=== PATIENT | female | born 1955 | race Caucasian/White ===

== ENCOUNTER 2022-03-07 22:36 | Emergency (ER) | payer OTHER ==
[2022-03-07] MEDS ORDERED: SODIUM CHLORIDE 2,654 ML IV ONE (23:10)
[2022-03-07 23:21] VITALS: TEMP 99.1; BMI 34.5
[2022-03-07] MEDS ORDERED: SODIUM CHLORIDE 0.9% 500 ML INFUS.BAG IV ONE (23:34)
[2022-03-07 23:36] LABS: VENOUS BASE EXCESS -8.3 mmol/L (-2-2); VENOUS O2 SATURATION 47.9 % (70-80); VENOUS PCO2 27.8 mmHg (38-52); VENOUS PH 7.383 (7.310-7.410)
[2022-03-07 23:38] LABS: BASO % 0.2 % (0-2.0); HEMATOCRIT 11.6 % (32.4-45.2); LYMPH % 15.2 % (8-40); MCH 39.7 pg (25.7-33.7); MCHC 33.7 g/dl (32.0-36.0); MEAN CELL VOLUME 117.6 fl (80-96); MEAN PLT VOLUME 9.3 fl (7.5-11.1); NEUT % 75.6 % (42.8-82.8); PLATELET COUNT 102 10^3/uL (134-434); RBC 0.98 M/mm3 (3.60-5.2); RDW 16.4 % (11.6-15.6); WHITE BLOOD COUNT 14.4 K/mm3 (4.0-10.0)
[2022-03-07 23:42] LABS: HEMOGLOBIN 3.9 GM/dL (10.7-15.3)
[2022-03-07 23:45] LABS: INR 2.46 (0.83-1.09); PROTHROMBIN TIME (PATIENT) 28.5 SEC (9.7-13.0)
[2022-03-07 23:48] LABS: ACTIVATED PTT 31.2 SECONDS (25.2-36.5)
[2022-03-07 23:58] LABS: CHLORIDE 94 mmol/L (98-107); SODIUM 130 mmol/L (136-145)
[2022-03-08 00:01] LABS: ALBUMIN 2.8 g/dl (3.4-5.0); ANION GAP 21 MMOL/L (8-16); CALCIUM 8.7 mg/dL (8.5-10.1); CO2 15 mmol/L (21-32); GLUCOSE,RANDOM 130 mg/dL (74-106)
[2022-03-08 00:04] LABS: CREATININE 1.8 mg/dL (0.55-1.3); SGOT/AST 170 U/L (15-37); SGPT/ALT 49 U/L (13-61)
[2022-03-08 00:05] LABS: ANISOCYTOSIS 3+; MACROCYTOSIS 3+
[2022-03-08 00:06] LABS: BILIRUBIN,TOTAL 9.2 mg/dL (0.2-1); TOT PROT 6.2 g/dl (6.4-8.2)
[2022-03-08 00:07] LABS: ALK PHOS 65 U/L (45-117)
[2022-03-08 00:28] LABS: LACTIC ACID 8.4 mmol/L (0.4-2.0)
[2022-03-08 00:32] LABS: EPI CELLS 2 /uL (0-25.1); HYALINE CASTS 2 /uL (0-3.1); PH,URINE 5.5 (5.0-8.0); URINE APPEARANCE CLEAR; URINE BILIRUBIN 1+ (NEGATIVE); URINE COLOR ORANGE; URINE GLUCOSE (UA) NEGATIVE (NEGATIVE); URINE KETONE TRACE (NEGATIVE); URINE LEUK ESTERASE TRACE (NEGATIVE); URINE NITRITE POSITIVE (NEGATIVE); URINE PROTEIN NEGATIVE (NEGATIVE); URINE RBC 36 /uL (0-23.9); URINE WBC 3 /uL (0-25.8)
[2022-03-08 01:48] VITALS: RESP 18
[2022-03-08 03:17] VITALS: BP 89/48; PULSE 100
[2022-03-09 09:20] LABS: LIPASE 432 U/L (73-393)
== END 2022-03-08 05:20 | disposition short-term general hospital (02) ==
LOC: JER 22:36
DX: R17 Unspecified jaundice (principal); D50.0 Iron deficiency anemia secondary to blood loss (chronic)
CPT/HCPCS: 36415; 36430; 70450-TC; 71045-TC-FY; 71250-TC; 74176-TC; 80053; 81003; 82140; 82550; 82553; 82803; 83605; 83690; 84484; 85025; 85610; 85730; 86850; 86900; 86901; 86922; 87040; 87086; 93005; 93010; 99285-25; C9803-CS; P9058; U0003; U0005

== ENCOUNTER 2022-06-18 08:50 | Inpatient (IN) | payer OTHER ==
[2022-06-18 09:06] VITALS: BMI 26.2
[2022-06-18] MEDS ORDERED: VANCOMYCIN 1 GM in D5W (PRE-DOCKED) 1,000 MG/250 ML IVPB ONE (09:43)
[2022-06-18] MEDS ORDERED: PIPERACILLIN/TAZOB 3.375 GM 3.375 GM in DEXTROSE 5%-WATER - 50 ML IVPB ONE (09:43)
[2022-06-18] MEDS ORDERED: PIPERACILLIN/TAZOB 3.375 GM 3.375 GM/50 ML BAG IVPB ONE ×2 (10:07→20:39)
[2022-06-18] MEDS ORDERED: VANCOMYCIN/WATER FOR INJ (PEG) 1,000 MG/200 ML BAG IVPB ONE (10:07)
[2022-06-18 11:02] LABS: BASO % 0.5 % (0-2.0); EOS % 1.2 % (0-4.5); HEMATOCRIT 29.7 % (32.4-45.2); HEMOGLOBIN 10.4 GM/dL (10.7-15.3); LYMPH % 22.9 % (8-40); MCH 38.9 pg (25.7-33.7); MEAN CELL VOLUME 111.3 fl (80-96); MEAN PLT VOLUME 8.5 fl (7.5-11.1); MONO % 12.3 % (3.8-10.2); NEUT % 63.1 % (42.8-82.8); PLATELET COUNT 131 10^3/uL (134-434); RBC 2.67 M/mm3 (3.60-5.2); RDW 14.1 % (11.6-15.6); WHITE BLOOD COUNT 8.5 K/mm3 (4.0-10.0)
[2022-06-18 11:17] LABS: CHLORIDE 102 mmol/L (98-107); SODIUM 132 mmol/L (136-145)
[2022-06-18 11:18] LABS: INR 2.02 (0.83-1.09); PROTHROMBIN TIME (PATIENT) 23.4 SEC (9.7-13.0)
[2022-06-18 11:19] LABS: ALBUMIN 1.8 g/dl (3.4-5.0); BLOOD UREA NITROGEN 13.2 mg/dL (7-18); CALCIUM 8.5 mg/dL (8.5-10.1); CO2 24 mmol/L (21-32); GLUCOSE,RANDOM 84 mg/dL (74-106)
[2022-06-18 11:21] LABS: ACTIVATED PTT 34.7 SECONDS (25.2-36.5)
[2022-06-18 11:23] LABS: CREATININE 0.7 mg/dL (0.55-1.3); SGOT/AST 207 U/L (15-37)
[2022-06-18 11:25] LABS: ALK PHOS 68 U/L (45-117); BILIRUBIN,TOTAL 4.3 mg/dL (0.2-1); TOT PROT 7.2 g/dl (6.4-8.2)
[2022-06-18 11:32] LABS: ANION GAP 6 MMOL/L (8-16); SGPT/ALT 50 U/L (13-61)
[2022-06-18 12:51] LABS: ANISOCYTOSIS 1+; MACROCYTOSIS 1+; OVALOCYTE 1+
[2022-06-18] MEDS ORDERED: SODIUM ZIRCONIUM CYCLOSILICATE (LOKELMA) 5 GM PACKET ONE (20:39)
[2022-06-18] MEDS: MIDODRINE HCL 2.5 MG TABLET PO SCH (20:52)
[2022-06-18] MEDS: PIPERACILLIN/TAZOB 3.375 GM 3.375 GM in DEXTROSE 5%-WATER - 50 ML IVPB SCH (20:52)
[2022-06-18] MEDS: SODIUM ZIRCONIUM CYCLOSILICATE (LOKELMA) 5 GM PACKET PO SCH (20:52)
[2022-06-18 21:11] LABS: CALCIUM 8.2 mg/dL (8.5-10.1)
[2022-06-18 21:12] LABS: BLOOD UREA NITROGEN 13.6 mg/dL (7-18)
[2022-06-18 21:14] LABS: CREATININE 0.7 mg/dL (0.55-1.3)
[2022-06-19] MEDS: DEXTROSE 5%-0.45% SALINE 1,000 ML IV SCH ×2 (01:41→17:19)
[2022-06-19] MEDS: METOPROLOL TARTRATE 25 MG TABLET (FP) PO SCH ×4 (01:41→21:33)
[2022-06-19] MEDS: PIPERACILLIN/TAZOB 3.375 GM 3.375 GM in DEXTROSE 5%-WATER - 50 ML IVPB SCH ×4 (01:46→17:19)
[2022-06-19 09:56] LABS: BASO % 0.6 % (0-2.0); EOS % 2.9 % (0-4.5); HEMATOCRIT 26.8 % (32.4-45.2); HEMOGLOBIN 9.4 GM/dL (10.7-15.3); LYMPH % 28.7 % (8-40); MCH 38.3 pg (25.7-33.7); MCHC 34.9 g/dl (32.0-36.0); MEAN CELL VOLUME 109.5 fl (80-96); MEAN PLT VOLUME 7.7 fl (7.5-11.1); MONO % 12.1 % (3.8-10.2); NEUT % 55.7 % (42.8-82.8); PLATELET COUNT 120 10^3/uL (134-434); RBC 2.45 M/mm3 (3.60-5.2); WHITE BLOOD COUNT 7.6 K/mm3 (4.0-10.0)
[2022-06-19] MEDS: SODIUM ZIRCONIUM CYCLOSILICATE (LOKELMA) 5 GM PACKET PO SCH (10:01)
[2022-06-19] MEDS: MIDODRINE HCL 2.5 MG TABLET PO SCH ×2 (10:01→17:19)
[2022-06-19 10:17] LABS: CALCIUM 8.5 mg/dL (8.5-10.1); MAGNESIUM 1.7 mg/dL (1.8-2.4)
[2022-06-19 10:18] LABS: ALBUMIN 1.8 g/dl (3.4-5.0); BLOOD UREA NITROGEN 13.8 mg/dL (7-18)
[2022-06-19 10:22] LABS: CREATININE 0.7 mg/dL (0.55-1.3)
[2022-06-19 10:23] LABS: TOT PROT 6.4 g/dl (6.4-8.2)
[2022-06-19] MEDS ORDERED: PANTOPRAZOLE 40 MG TABLET PO SCH (12:00)
[2022-06-19] MEDS: LACTULOSE 20 GM/30 ML UDC (FOR ORAL USE ONLY) PO SCH ×2 (12:43→21:32)
[2022-06-19] MEDS: VANCOMYCIN/WATER FOR INJ (PEG) 1,000 MG/200 ML BAG IVPB SCH (14:49)
[2022-06-19] MEDS ORDERED: MAGNESIUM SULF 50% (8.12 MEQ/2 ML-1 GM VIAL) IVPB ONE (15:28)
[2022-06-19] MEDS: HEPARIN NA (PORCINE) 5,000 UNITS/ML 1ML VIAL SQ SCH (21:33)
[2022-06-19] MEDS: FUROSEMIDE 40 MG TABLET (FP) PO SCH (21:36)
[2022-06-19] MEDS: SODIUM CHLORIDE 1 GM TABLET PO SCH (21:37)
[2022-06-19] MEDS ORDERED: RIFAXIMIN 550 MG TABLET PO SCH (22:00)
[2022-06-20] MEDS: PIPERACILLIN/TAZOB 3.375 GM 3.375 GM in DEXTROSE 5%-WATER - 50 ML IVPB SCH ×5 (01:09→17:10)
[2022-06-20] MEDS: VANCOMYCIN/WATER FOR INJ (PEG) 1,000 MG/200 ML BAG IVPB SCH ×2 (02:21→15:31)
[2022-06-20] MEDS: METOPROLOL TARTRATE 25 MG TABLET (FP) PO SCH ×3 (06:05→21:37)
[2022-06-20] MEDS: SODIUM CHLORIDE 1 GM TABLET PO SCH ×2 (09:46→21:37)
[2022-06-20] MEDS: HEPARIN NA (PORCINE) 5,000 UNITS/ML 1ML VIAL SQ SCH ×2 (09:46→21:37)
[2022-06-20] MEDS: LEVOTHYROXINE NA 100 MCG TABLET (FP) PO SCH (09:46)
[2022-06-20] MEDS: FAMOTIDINE 20 MG TABLET PO SCH (09:46)
[2022-06-20] MEDS: MIDODRINE HCL 2.5 MG TABLET PO SCH ×2 (09:46→17:10)
[2022-06-20] MEDS: FUROSEMIDE 40 MG TABLET (FP) PO SCH ×2 (09:46→21:37)
[2022-06-20] MEDS: PYRIDOXINE HCL (B-6) 50 MG TABLET (FP) PO SCH (09:46)
[2022-06-20] MEDS: LACTULOSE 20 GM/30 ML UDC (FOR ORAL USE ONLY) PO SCH ×2 (09:47→21:37)
[2022-06-20] MEDS: SPIRONOLACTONE 25 MG TABLET PO SCH (09:47)
[2022-06-20 11:36] LABS: BASO % 1.1 % (0-2.0); EOS % 4.4 % (0-4.5); HEMATOCRIT 25.4 % (32.4-45.2); HEMOGLOBIN 8.9 GM/dL (10.7-15.3); LYMPH % 30.3 % (8-40); MCH 38.3 pg (25.7-33.7); MEAN CELL VOLUME 109.5 fl (80-96); MEAN PLT VOLUME 7.4 fl (7.5-11.1); MONO % 9.5 % (3.8-10.2); NEUT % 54.7 % (42.8-82.8); PLATELET COUNT 109 10^3/uL (134-434); RBC 2.32 M/mm3 (3.60-5.2); RDW 13.8 % (11.6-15.6); RETICULOCYTES 2.63 % (0.5-1.5); WHITE BLOOD COUNT 5.8 K/mm3 (4.0-10.0)
[2022-06-20 12:18] LABS: CALCIUM 8.4 mg/dL (8.5-10.1)
[2022-06-20 12:19] LABS: ALBUMIN 1.7 g/dl (3.4-5.0); ALBUMIN 1.8 g/dl (3.4-5.0); BLOOD UREA NITROGEN 10.2 mg/dL (7-18)
[2022-06-20 12:21] LABS: BILIRUBIN,DIRECT 1.7 mg/dL (0.0-0.2)
[2022-06-20 12:22] LABS: CREATININE 0.8 mg/dL (0.55-1.3)
[2022-06-20 12:24] LABS: BILIRUBIN,TOTAL 3.2 mg/dL (0.2-1)
[2022-06-20] MEDS ORDERED: POTASSIUM CHLORIDE TABS 20 MEQ TABLET.ER (FP) PO ONE (13:30)
[2022-06-20] MEDS: DEXTROSE 5%-0.45% SALINE 1,000 ML IV SCH ×2 (15:31→17:09)
[2022-06-21] MEDS: PIPERACILLIN/TAZOB 3.375 GM 3.375 GM in DEXTROSE 5%-WATER - 50 ML IVPB SCH ×3 (01:56→17:17)
[2022-06-21] MEDS: VANCOMYCIN/WATER FOR INJ (PEG) 1,000 MG/200 ML BAG IVPB SCH ×2 (02:23→14:44)
[2022-06-21] MEDS: METOPROLOL TARTRATE 25 MG TABLET (FP) PO SCH ×3 (06:14→22:31)
[2022-06-21] MEDS: LEVOTHYROXINE NA 100 MCG TABLET (FP) PO SCH (06:14)
[2022-06-21 09:22] LABS: BASO % 0.7 % (0-2.0); HEMATOCRIT 25.6 % (32.4-45.2); HEMOGLOBIN 8.9 GM/dL (10.7-15.3); LYMPH % 25.2 % (8-40); MCH 38.4 pg (25.7-33.7); MCHC 34.8 g/dl (32.0-36.0); MEAN CELL VOLUME 110.3 fl (80-96); MONO % 11.4 % (3.8-10.2); NEUT % 60.7 % (42.8-82.8); PLATELET COUNT 112 10^3/uL (134-434); RBC 2.32 M/mm3 (3.60-5.2); RDW 14.1 % (11.6-15.6); WHITE BLOOD COUNT 8.4 K/mm3 (4.0-10.0)
[2022-06-21 09:34] LABS: ALBUMIN 1.8 g/dl (3.4-5.0); BLOOD UREA NITROGEN 9.8 mg/dL (7-18); CALCIUM 8.3 mg/dL (8.5-10.1)
[2022-06-21] MEDS: SPIRONOLACTONE 25 MG TABLET PO SCH (09:34)
[2022-06-21] MEDS: HEPARIN NA (PORCINE) 5,000 UNITS/ML 1ML VIAL SQ SCH ×2 (09:35→22:31)
[2022-06-21] MEDS: PYRIDOXINE HCL (B-6) 50 MG TABLET (FP) PO SCH (09:35)
[2022-06-21] MEDS: LACTULOSE 20 GM/30 ML UDC (FOR ORAL USE ONLY) PO SCH ×2 (09:35→22:30)
[2022-06-21 09:37] LABS: BILIRUBIN,DIRECT 1.6 mg/dL (0.0-0.2); CREATININE 0.9 mg/dL (0.55-1.3)
[2022-06-21] MEDS: FUROSEMIDE 40 MG TABLET (FP) PO SCH ×2 (09:37→22:32)
[2022-06-21] MEDS: FAMOTIDINE 20 MG TABLET PO SCH (09:37)
[2022-06-21] MEDS: SODIUM CHLORIDE 1 GM TABLET PO SCH ×2 (09:38→22:31)
[2022-06-21] MEDS: MIDODRINE HCL 2.5 MG TABLET PO SCH ×2 (09:38→17:17)
[2022-06-21 09:39] LABS: BILIRUBIN,TOTAL 3.3 mg/dL (0.2-1)
[2022-06-21] MEDS ORDERED: POTASSIUM CHLORIDE TABS 20 MEQ TABLET.ER (FP) PO ONE (12:02)
[2022-06-21] MEDS: NYSTATIN POWDER 100,000 UNITS/GM - 15 GM TOPICAL POWDER TP SCH ×2 (13:16→22:33)
[2022-06-21] MEDS: POTASSIUM CHLORIDE TABS 20 MEQ TABLET.ER (FP) PO SCH (13:17)
[2022-06-21] MEDS: COLLAGENASE CLOSTRIDIUM HIST. 30 GRAMS TUBE TP SCH (22:30)
[2022-06-22] MEDS: PIPERACILLIN/TAZOB 3.375 GM 3.375 GM in DEXTROSE 5%-WATER - 50 ML IVPB SCH ×3 (02:28→18:02)
[2022-06-22] MEDS: VANCOMYCIN/WATER FOR INJ (PEG) 1,000 MG/200 ML BAG IVPB SCH ×2 (03:39→17:07)
[2022-06-22] MEDS: LEVOTHYROXINE NA 100 MCG TABLET (FP) PO SCH (06:56)
[2022-06-22] MEDS: METOPROLOL TARTRATE 25 MG TABLET (FP) PO SCH ×3 (06:59→21:53)
[2022-06-22] MEDS: SPIRONOLACTONE 25 MG TABLET PO SCH (09:31)
[2022-06-22] MEDS: FAMOTIDINE 20 MG TABLET PO SCH (09:32)
[2022-06-22] MEDS: PYRIDOXINE HCL (B-6) 50 MG TABLET (FP) PO SCH (09:32)
[2022-06-22] MEDS: SODIUM CHLORIDE 1 GM TABLET PO SCH ×2 (09:32→21:53)
[2022-06-22] MEDS: MIDODRINE HCL 2.5 MG TABLET PO SCH ×2 (09:32→17:16)
[2022-06-22] MEDS: FUROSEMIDE 40 MG TABLET (FP) PO SCH ×2 (09:32→21:52)
[2022-06-22] MEDS: COLLAGENASE CLOSTRIDIUM HIST. 30 GRAMS TUBE TP SCH (09:33)
[2022-06-22] MEDS: HEPARIN NA (PORCINE) 5,000 UNITS/ML 1ML VIAL SQ SCH ×2 (09:33→21:53)
[2022-06-22] MEDS: NYSTATIN POWDER 100,000 UNITS/GM - 15 GM TOPICAL POWDER TP SCH ×2 (09:33→22:41)
[2022-06-22] MEDS: LACTULOSE 20 GM/30 ML UDC (FOR ORAL USE ONLY) PO SCH ×2 (09:35→21:53)
[2022-06-22 09:47] LABS: CALCIUM 8.3 mg/dL (8.5-10.1)
[2022-06-22 09:48] LABS: ALBUMIN 1.9 g/dl (3.4-5.0); MAGNESIUM 1.4 mg/dL (1.8-2.4)
[2022-06-22 09:50] LABS: BILIRUBIN,DIRECT 1.6 mg/dL (0.0-0.2); CREATININE 0.9 mg/dL (0.55-1.3)
[2022-06-22 09:51] LABS: BILIRUBIN,TOTAL 3.3 mg/dL (0.2-1); TOT PROT 6.2 g/dl (6.4-8.2)
[2022-06-22] MEDS ORDERED: POTASSIUM CHLORIDE ORAL LIQUID 20 MEQ/15 ML PO ONE (11:18)
[2022-06-22] MEDS ORDERED: MAGNESIUM SULF 50% (8.12 MEQ/2 ML-1 GM VIAL) IVPB ONE (11:18)
[2022-06-22] MEDS ORDERED: POTASSIUM CHLORIDE TABS 20 MEQ TABLET.ER (FP) PO ONE (11:58)
[2022-06-22 13:12] LABS: GLIADIN ANTIBODY IGA 26 units (0-19); GLIADIN ANTIBODY IGG 14 units (0-19); TRANSGLUTAMINASE IGG 12 U/mL (0-5)
[2022-06-22] MEDS: POTASSIUM CHLORIDE TABS 20 MEQ TABLET.ER (FP) PO SCH (15:43)
[2022-06-22] MEDS: MAGNESIUM OXIDE 400 MG TABLET (FP) PO SCH (21:52)
[2022-06-23] MEDS: PIPERACILLIN/TAZOB 3.375 GM 3.375 GM in DEXTROSE 5%-WATER - 50 ML IVPB SCH ×3 (01:16→17:31)
[2022-06-23] MEDS: VANCOMYCIN/WATER FOR INJ (PEG) 1,000 MG/200 ML BAG IVPB SCH (03:04)
[2022-06-23] MEDS: LEVOTHYROXINE NA 100 MCG TABLET (FP) PO SCH (06:06)
[2022-06-23] MEDS: METOPROLOL TARTRATE 25 MG TABLET (FP) PO SCH ×3 (06:06→21:22)
[2022-06-23 07:55] LABS: BASO % 1.1 % (0-2.0); EOS % 2.6 % (0-4.5); HEMATOCRIT 22.6 % (32.4-45.2); HEMOGLOBIN 7.8 GM/dL (10.7-15.3); LYMPH % 40.1 % (8-40); MCH 37.9 pg (25.7-33.7); MCHC 34.7 g/dl (32.0-36.0); MEAN CELL VOLUME 109.1 fl (80-96); MEAN PLT VOLUME 7.5 fl (7.5-11.1); MONO % 14.1 % (3.8-10.2); NEUT % 42.1 % (42.8-82.8); PLATELET COUNT 127 10^3/uL (134-434); RBC 2.07 M/mm3 (3.60-5.2); RDW 14.3 % (11.6-15.6); WHITE BLOOD COUNT 8.4 K/mm3 (4.0-10.0)
[2022-06-23 08:21] LABS: ALBUMIN 1.9 g/dl (3.4-5.0); CALCIUM 8.3 mg/dL (8.5-10.1)
[2022-06-23 08:22] LABS: BLOOD UREA NITROGEN 11.9 mg/dL (7-18)
[2022-06-23 08:24] LABS: ANISOCYTOSIS 1+; MACROCYTOSIS 1+; PLATELET ESTIMATE DECREASED
[2022-06-23 08:25] LABS: CREATININE 0.9 mg/dL (0.55-1.3)
[2022-06-23 08:26] LABS: BILIRUBIN,TOTAL 3.3 mg/dL (0.2-1); TOT PROT 6.2 g/dl (6.4-8.2)
[2022-06-23] MEDS ORDERED: FUROSEMIDE 40 MG/4 ML INJECTABLE VIAL IVPUSH SCH (09:07)
[2022-06-23] MEDS: LACTULOSE 20 GM/30 ML UDC (FOR ORAL USE ONLY) PO SCH ×2 (09:35→21:22)
[2022-06-23] MEDS: HEPARIN NA (PORCINE) 5,000 UNITS/ML 1ML VIAL SQ SCH (09:35)
[2022-06-23] MEDS: FAMOTIDINE 20 MG TABLET PO SCH (09:39)
[2022-06-23] MEDS: PYRIDOXINE HCL (B-6) 50 MG TABLET (FP) PO SCH (09:39)
[2022-06-23] MEDS: FUROSEMIDE 40 MG TABLET (FP) PO SCH ×2 (09:39→21:22)
[2022-06-23] MEDS: MAGNESIUM OXIDE 400 MG TABLET (FP) PO SCH ×2 (09:39→21:22)
[2022-06-23] MEDS: SPIRONOLACTONE 25 MG TABLET PO SCH (09:39)
[2022-06-23] MEDS: NYSTATIN POWDER 100,000 UNITS/GM - 15 GM TOPICAL POWDER TP SCH ×2 (09:40→21:23)
[2022-06-23] MEDS: MIDODRINE HCL 2.5 MG TABLET PO SCH ×2 (09:41→18:51)
[2022-06-23] MEDS: COLLAGENASE CLOSTRIDIUM HIST. 30 GRAMS TUBE TP SCH (09:41)
[2022-06-23] MEDS: SODIUM CHLORIDE 1 GM TABLET PO SCH ×2 (09:44→21:22)
[2022-06-23] MEDS: POTASSIUM CHLORIDE TABS 20 MEQ TABLET.ER (FP) PO SCH (13:37)
[2022-06-23 16:27] LABS: BASO % 1.2 % (0-2.0); EOS % 1.9 % (0-4.5); HEMATOCRIT 23.1 % (32.4-45.2); HEMOGLOBIN 8.1 GM/dL (10.7-15.3); MCH 38.4 pg (25.7-33.7); MEAN CELL VOLUME 109.9 fl (80-96); MEAN PLT VOLUME 7.4 fl (7.5-11.1); NEUT % 47.9 % (42.8-82.8); PLATELET COUNT 135 10^3/uL (134-434); RDW 14.5 % (11.6-15.6); WHITE BLOOD COUNT 10.1 K/mm3 (4.0-10.0)
[2022-06-24] MEDS: PIPERACILLIN/TAZOB 3.375 GM 3.375 GM in DEXTROSE 5%-WATER - 50 ML IVPB SCH ×3 (05:31→18:00)
[2022-06-24] MEDS: LEVOTHYROXINE NA 100 MCG TABLET (FP) PO SCH (06:21)
[2022-06-24] MEDS: METOPROLOL TARTRATE 25 MG TABLET (FP) PO SCH ×3 (06:21→21:42)
[2022-06-24 09:51] LABS: BASO % 1.2 % (0-2.0); EOS % 2.2 % (0-4.5); HEMATOCRIT 22.7 % (32.4-45.2); MCH 35.9 pg (25.7-33.7); MCHC 35.2 g/dl (32.0-36.0); MEAN CELL VOLUME 101.8 fl (80-96); MEAN PLT VOLUME 7.1 fl (7.5-11.1); MONO % 13.5 % (3.8-10.2); NEUT % 44.1 % (42.8-82.8); PLATELET COUNT 117 10^3/uL (134-434); RBC 2.23 M/mm3 (3.60-5.2); RDW 19.6 % (11.6-15.6); WHITE BLOOD COUNT 8.4 K/mm3 (4.0-10.0)
[2022-06-24 09:58] LABS: INR 1.65 (0.83-1.09); PROTHROMBIN TIME (PATIENT) 19.1 SEC (9.7-13.0)
[2022-06-24 10:18] LABS: ALBUMIN 2.2 g/dl (3.4-5.0); BLOOD UREA NITROGEN 16.5 mg/dL (7-18); CALCIUM 9.3 mg/dL (8.5-10.1)
[2022-06-24 10:19] LABS: MAGNESIUM 1.8 mg/dL (1.8-2.4)
[2022-06-24 10:20] LABS: CREATININE 1.2 mg/dL (0.55-1.3)
[2022-06-24 10:22] LABS: BILIRUBIN,TOTAL 4.4 mg/dL (0.2-1); TOT PROT 6.3 g/dl (6.4-8.2)
[2022-06-24] MEDS: SODIUM CHLORIDE 1 GM TABLET PO SCH ×2 (11:16→22:35)
[2022-06-24] MEDS: MAGNESIUM OXIDE 400 MG TABLET (FP) PO SCH ×2 (11:19→21:42)
[2022-06-24] MEDS: FAMOTIDINE 20 MG TABLET PO SCH (11:19)
[2022-06-24] MEDS: LACTULOSE 20 GM/30 ML UDC (FOR ORAL USE ONLY) PO SCH ×2 (11:19→21:42)
[2022-06-24] MEDS: SPIRONOLACTONE 25 MG TABLET PO SCH (11:20)
[2022-06-24] MEDS: MIDODRINE HCL 2.5 MG TABLET PO SCH ×2 (11:20→18:00)
[2022-06-24] MEDS: PYRIDOXINE HCL (B-6) 50 MG TABLET (FP) PO SCH (11:20)
[2022-06-24] MEDS: FUROSEMIDE 40 MG TABLET (FP) PO SCH ×2 (11:21→21:42)
[2022-06-24] MEDS: NYSTATIN POWDER 100,000 UNITS/GM - 15 GM TOPICAL POWDER TP SCH ×2 (11:55→21:42)
[2022-06-24] MEDS: COLLAGENASE CLOSTRIDIUM HIST. 30 GRAMS TUBE TP SCH (11:55)
[2022-06-24] MEDS: POTASSIUM CHLORIDE TABS 20 MEQ TABLET.ER (FP) PO SCH (16:16)
[2022-06-24 19:18] LABS: EPI CELLS 8 /uL (0-25.1); HYALINE CASTS 0 /uL (0-3.1); PH,URINE 6.5 (5.0-8.0); URINE APPEARANCE TURBID; URINE BACTERIA 2 /uL (0-1359); URINE BILIRUBIN NEGATIVE (NEGATIVE); URINE COLOR YELLOW; URINE GLUCOSE (UA) NEGATIVE (NEGATIVE); URINE KETONE NEGATIVE (NEGATIVE); URINE LEUK ESTERASE NEGATIVE (NEGATIVE); URINE NITRITE NEGATIVE (NEGATIVE); URINE PROTEIN NEGATIVE (NEGATIVE); URINE RBC 5 /uL (0-23.9); URINE UROBILINOGEN 0.2 mg/dL (0.2-1.0); URINE WBC 5 /uL (0-25.8)
[2022-06-25] MEDS ORDERED: POTASSIUM CHLORIDE TABS 20 MEQ TABLET.ER (FP) PO ONE (01:00)
[2022-06-25] MEDS: PIPERACILLIN/TAZOB 3.375 GM 3.375 GM in DEXTROSE 5%-WATER - 50 ML IVPB SCH ×3 (01:15→18:26)
[2022-06-25] MEDS: METOPROLOL TARTRATE 25 MG TABLET (FP) PO SCH ×3 (06:02→22:25)
[2022-06-25] MEDS: LEVOTHYROXINE NA 100 MCG TABLET (FP) PO SCH (06:02)
[2022-06-25 09:01] LABS: EOS % 2.5 % (0-4.5); HEMOGLOBIN 9.4 GM/dL (10.7-15.3); LYMPH % 33.3 % (8-40); MCH 35.7 pg (25.7-33.7); MCHC 36.2 g/dl (32.0-36.0); MEAN CELL VOLUME 98.6 fl (80-96); MEAN PLT VOLUME 7.1 fl (7.5-11.1); NEUT % 53.2 % (42.8-82.8); PLATELET COUNT 121 10^3/uL (134-434); RBC 2.64 M/mm3 (3.60-5.2); RDW 19.6 % (11.6-15.6); WHITE BLOOD COUNT 8.3 K/mm3 (4.0-10.0)
[2022-06-25 09:08] LABS: INR 1.58 (0.83-1.09); PROTHROMBIN TIME (PATIENT) 18.2 SEC (9.7-13.0)
[2022-06-25 09:11] LABS: ACTIVATED PTT 37.7 SECONDS (25.2-36.5)
[2022-06-25 09:44] LABS: BLOOD UREA NITROGEN 15.8 mg/dL (7-18)
[2022-06-25 09:45] LABS: ALBUMIN 2.3 g/dl (3.4-5.0); CALCIUM 9.2 mg/dL (8.5-10.1)
[2022-06-25 09:49] LABS: CREATININE 1.1 mg/dL (0.55-1.3)
[2022-06-25 09:50] LABS: TOT PROT 6.5 g/dl (6.4-8.2)
[2022-06-25] MEDS: COLLAGENASE CLOSTRIDIUM HIST. 30 GRAMS TUBE TP SCH (11:48)
[2022-06-25] MEDS: NYSTATIN POWDER 100,000 UNITS/GM - 15 GM TOPICAL POWDER TP SCH ×2 (11:48→22:29)
[2022-06-25] MEDS: MIDODRINE HCL 2.5 MG TABLET PO SCH ×2 (11:49→18:26)
[2022-06-25] MEDS: LACTULOSE 20 GM/30 ML UDC (FOR ORAL USE ONLY) PO SCH ×2 (11:49→22:24)
[2022-06-25] MEDS: MAGNESIUM OXIDE 400 MG TABLET (FP) PO SCH ×2 (11:49→22:25)
[2022-06-25] MEDS: SPIRONOLACTONE 25 MG TABLET PO SCH (11:49)
[2022-06-25] MEDS: FAMOTIDINE 20 MG TABLET PO SCH (11:49)
[2022-06-25] MEDS: FUROSEMIDE 40 MG TABLET (FP) PO SCH ×2 (11:49→22:24)
[2022-06-25] MEDS: SODIUM CHLORIDE 1 GM TABLET PO SCH ×2 (11:50→22:25)
[2022-06-25] MEDS: PYRIDOXINE HCL (B-6) 50 MG TABLET (FP) PO SCH (11:50)
[2022-06-25] MEDS: AMINO ACIDS/PROTEIN HYDROLYS 30 ML LIQUID.PKT PO SCH (18:26)
[2022-06-25] MEDS: POTASSIUM CHLORIDE TABS 20 MEQ TABLET.ER (FP) PO SCH (19:02)
[2022-06-25] MEDS: ASCORBIC ACID 250 MG TABLET (FP) PO SCH (22:29)
[2022-06-26] MEDS: PIPERACILLIN/TAZOB 3.375 GM 3.375 GM in DEXTROSE 5%-WATER - 50 ML IVPB SCH ×3 (02:16→18:22)
[2022-06-26] MEDS: METOPROLOL TARTRATE 25 MG TABLET (FP) PO SCH ×3 (05:47→23:01)
[2022-06-26] MEDS: LEVOTHYROXINE NA 100 MCG TABLET (FP) PO SCH (05:48)
[2022-06-26] MEDS: ASCORBIC ACID 250 MG TABLET (FP) PO SCH (11:54)
[2022-06-26] MEDS: PYRIDOXINE HCL (B-6) 50 MG TABLET (FP) PO SCH (11:54)
[2022-06-26] MEDS: SODIUM CHLORIDE 1 GM TABLET PO SCH ×2 (11:54→23:01)
[2022-06-26] MEDS: ZINC SULFATE 220 MG CAPSULE (FP) PO SCH (11:54)
[2022-06-26] MEDS: MAGNESIUM OXIDE 400 MG TABLET (FP) PO SCH ×2 (11:54→22:57)
[2022-06-26] MEDS: AMINO ACIDS/PROTEIN HYDROLYS 30 ML LIQUID.PKT PO SCH ×2 (11:54→18:22)
[2022-06-26] MEDS: LACTULOSE 20 GM/30 ML UDC (FOR ORAL USE ONLY) PO SCH ×2 (11:54→23:05)
[2022-06-26] MEDS: SPIRONOLACTONE 25 MG TABLET PO SCH (11:55)
[2022-06-26] MEDS: FAMOTIDINE 20 MG TABLET PO SCH (11:55)
[2022-06-26] MEDS: MIDODRINE HCL 2.5 MG TABLET PO SCH ×2 (11:55→18:22)
[2022-06-26] MEDS: FUROSEMIDE 40 MG TABLET (FP) PO SCH ×2 (11:55→23:01)
[2022-06-26] MEDS: NYSTATIN POWDER 100,000 UNITS/GM - 15 GM TOPICAL POWDER TP SCH ×2 (11:56→23:02)
[2022-06-26] MEDS: COLLAGENASE CLOSTRIDIUM HIST. 30 GRAMS TUBE TP SCH (11:56)
[2022-06-26] MEDS: MULTIVITAMINS (DAILY MVI) TABLET (FP) PO SCH (11:56)
[2022-06-26 13:39] LABS: BASO % 1.1 % (0-2.0); EOS % 2.8 % (0-4.5); HEMATOCRIT 28.1 % (32.4-45.2); HEMOGLOBIN 9.9 GM/dL (10.7-15.3); LYMPH % 30.4 % (8-40); MCH 35.4 pg (25.7-33.7); MCHC 35.4 g/dl (32.0-36.0); MEAN PLT VOLUME 7.6 fl (7.5-11.1); MONO % 8.3 % (3.8-10.2); NEUT % 57.4 % (42.8-82.8); PLATELET COUNT 129 10^3/uL (134-434); RBC 2.81 M/mm3 (3.60-5.2); RDW 19.1 % (11.6-15.6); WHITE BLOOD COUNT 9.1 K/mm3 (4.0-10.0)
[2022-06-27] MEDS: ASCORBIC ACID 250 MG TABLET (FP) PO SCH ×3 (00:41→21:43)
[2022-06-27] MEDS ORDERED: METOPROLOL TARTRATE 25 MG TABLET (FP) PO ONE (01:13)
[2022-06-27] MEDS: PIPERACILLIN/TAZOB 3.375 GM 3.375 GM in DEXTROSE 5%-WATER - 50 ML IVPB SCH ×3 (01:14→18:07)
[2022-06-27] MEDS: METOPROLOL TARTRATE 25 MG TABLET (FP) PO SCH ×3 (05:24→21:50)
[2022-06-27] MEDS: LEVOTHYROXINE NA 100 MCG TABLET (FP) PO SCH (05:25)
[2022-06-27 09:38] LABS: CALCIUM 9.2 mg/dL (8.5-10.1)
[2022-06-27 09:39] LABS: ALBUMIN 2.3 g/dl (3.4-5.0); BLOOD UREA NITROGEN 21.1 mg/dL (7-18)
[2022-06-27 09:42] LABS: PHOSPHOROUS 3.4 mg/dL (2.5-4.9)
[2022-06-27 09:43] LABS: BILIRUBIN,TOTAL 4.2 mg/dL (0.2-1); TOT PROT 6.6 g/dl (6.4-8.2)
[2022-06-27] MEDS: AMINO ACIDS/PROTEIN HYDROLYS 30 ML LIQUID.PKT PO SCH ×2 (10:10→18:06)
[2022-06-27] MEDS: LACTULOSE 20 GM/30 ML UDC (FOR ORAL USE ONLY) PO SCH ×2 (10:11→21:44)
[2022-06-27] MEDS: MIDODRINE HCL 2.5 MG TABLET PO SCH ×2 (10:12→18:07)
[2022-06-27] MEDS: PYRIDOXINE HCL (B-6) 50 MG TABLET (FP) PO SCH (10:12)
[2022-06-27] MEDS: FAMOTIDINE 20 MG TABLET PO SCH (10:13)
[2022-06-27] MEDS: MAGNESIUM OXIDE 400 MG TABLET (FP) PO SCH ×2 (10:13→21:42)
[2022-06-27] MEDS: MULTIVITAMINS (DAILY MVI) TABLET (FP) PO SCH (10:13)
[2022-06-27] MEDS: ZINC SULFATE 220 MG CAPSULE (FP) PO SCH (10:15)
[2022-06-27] MEDS: SODIUM CHLORIDE 1 GM TABLET PO SCH ×2 (10:15→21:43)
[2022-06-27] MEDS: FUROSEMIDE 40 MG TABLET (FP) PO SCH ×2 (10:15→21:52)
[2022-06-27] MEDS: SPIRONOLACTONE 25 MG TABLET PO SCH (10:15)
[2022-06-27] MEDS: COLLAGENASE CLOSTRIDIUM HIST. 30 GRAMS TUBE TP SCH (10:16)
[2022-06-27] MEDS: NYSTATIN POWDER 100,000 UNITS/GM - 15 GM TOPICAL POWDER TP SCH ×2 (10:16→21:43)
[2022-06-27] MEDS ORDERED: POTASSIUM CHLORIDE TABS 20 MEQ TABLET.ER (FP) PO ONE (13:55)
[2022-06-27] MEDS ORDERED: INSULIN (LEVEMIR) 100 UNITS/ML UNITS SQ ONE (18:55)
[2022-06-27] MEDS ORDERED: INSULIN (NOVOLOG) ASPART 100 UNITS/ML 10ML VIAL ONE (18:55)
[2022-06-28 00:58] VITALS: RESP 18
[2022-06-28] MEDS: PIPERACILLIN/TAZOB 3.375 GM 3.375 GM in DEXTROSE 5%-WATER - 50 ML IVPB SCH ×3 (01:44→17:05)
[2022-06-28] MEDS: METOPROLOL TARTRATE 25 MG TABLET (FP) PO SCH ×4 (05:35→22:36)
[2022-06-28] MEDS: LEVOTHYROXINE NA 100 MCG TABLET (FP) PO SCH (05:35)
[2022-06-28 09:45] LABS: CALCIUM 8.1 mg/dL (8.5-10.1)
[2022-06-28 09:46] LABS: ALBUMIN 2.7 g/dl (3.4-5.0); BLOOD UREA NITROGEN 24.2 mg/dL (7-18)
[2022-06-28 09:49] LABS: CREATININE 0.8 mg/dL (0.55-1.3)
[2022-06-28 09:51] LABS: BILIRUBIN,TOTAL 2.5 mg/dL (0.2-1); TOT PROT 6.4 g/dl (6.4-8.2)
[2022-06-28] MEDS: FUROSEMIDE 40 MG TABLET (FP) PO SCH ×3 (10:05→22:36)
[2022-06-28] MEDS: MULTIVITAMINS (DAILY MVI) TABLET (FP) PO SCH (10:05)
[2022-06-28] MEDS: SODIUM CHLORIDE 1 GM TABLET PO SCH ×2 (10:05→22:53)
[2022-06-28] MEDS: MAGNESIUM OXIDE 400 MG TABLET (FP) PO SCH ×2 (10:05→22:03)
[2022-06-28] MEDS: ZINC SULFATE 220 MG CAPSULE (FP) PO SCH (10:05)
[2022-06-28] MEDS: FAMOTIDINE 20 MG TABLET PO SCH (10:06)
[2022-06-28] MEDS: SPIRONOLACTONE 25 MG TABLET PO SCH (10:06)
[2022-06-28] MEDS: PYRIDOXINE HCL (B-6) 50 MG TABLET (FP) PO SCH (10:07)
[2022-06-28] MEDS: ASCORBIC ACID 250 MG TABLET (FP) PO SCH ×2 (10:07→22:53)
[2022-06-28] MEDS: MIDODRINE HCL 2.5 MG TABLET PO SCH ×2 (10:07→17:05)
[2022-06-28] MEDS: NYSTATIN POWDER 100,000 UNITS/GM - 15 GM TOPICAL POWDER TP SCH ×2 (10:08→22:12)
[2022-06-28] MEDS: COLLAGENASE CLOSTRIDIUM HIST. 30 GRAMS TUBE TP SCH (10:09)
[2022-06-28] MEDS: AMINO ACIDS/PROTEIN HYDROLYS 30 ML LIQUID.PKT PO SCH ×2 (10:32→17:06)
[2022-06-28] MEDS: LACTULOSE 20 GM/30 ML UDC (FOR ORAL USE ONLY) PO SCH ×2 (10:32→22:02)
[2022-06-29] MEDS: PIPERACILLIN/TAZOB 3.375 GM 3.375 GM in DEXTROSE 5%-WATER - 50 ML IVPB SCH ×3 (03:54→17:59)
[2022-06-29] MEDS: LEVOTHYROXINE NA 100 MCG TABLET (FP) PO SCH (06:32)
[2022-06-29] MEDS: METOPROLOL TARTRATE 25 MG TABLET (FP) PO SCH ×3 (06:32→22:35)
[2022-06-29 08:12] LABS: BASO % 1.4 % (0-2.0); EOS % 3.3 % (0-4.5); HEMATOCRIT 26.8 % (32.4-45.2); HEMOGLOBIN 9.3 GM/dL (10.7-15.3); LYMPH % 30.1 % (8-40); MCH 35.5 pg (25.7-33.7); MCHC 34.7 g/dl (32.0-36.0); MEAN CELL VOLUME 102.5 fl (80-96); MEAN PLT VOLUME 7.9 fl (7.5-11.1); MONO % 9.3 % (3.8-10.2); NEUT % 55.9 % (42.8-82.8); PLATELET COUNT 101 10^3/uL (134-434); RBC 2.61 M/mm3 (3.60-5.2)
[2022-06-29 08:17] LABS: CALCIUM 8.7 mg/dL (8.5-10.1)
[2022-06-29 08:21] LABS: CREATININE 0.8 mg/dL (0.55-1.3)
[2022-06-29 08:23] LABS: BILIRUBIN,TOTAL 3.4 mg/dL (0.2-1); TOT PROT 6.3 g/dl (6.4-8.2)
[2022-06-29 08:27] LABS: ALBUMIN 2.2 g/dl (3.4-5.0)
[2022-06-29] MEDS: ZINC SULFATE 220 MG CAPSULE (FP) PO SCH (09:21)
[2022-06-29] MEDS: MULTIVITAMINS (DAILY MVI) TABLET (FP) PO SCH (09:21)
[2022-06-29] MEDS: MAGNESIUM OXIDE 400 MG TABLET (FP) PO SCH ×2 (09:21→22:34)
[2022-06-29] MEDS: PYRIDOXINE HCL (B-6) 50 MG TABLET (FP) PO SCH (09:21)
[2022-06-29] MEDS: FAMOTIDINE 20 MG TABLET PO SCH (09:21)
[2022-06-29] MEDS: AMINO ACIDS/PROTEIN HYDROLYS 30 ML LIQUID.PKT PO SCH ×2 (09:21→17:24)
[2022-06-29] MEDS: FUROSEMIDE 40 MG TABLET (FP) PO SCH (09:22)
[2022-06-29] MEDS: SPIRONOLACTONE 25 MG TABLET PO SCH (09:22)
[2022-06-29] MEDS: LACTULOSE 20 GM/30 ML UDC (FOR ORAL USE ONLY) PO SCH ×2 (09:22→22:34)
[2022-06-29] MEDS: SODIUM CHLORIDE 1 GM TABLET PO SCH ×2 (09:23→22:34)
[2022-06-29] MEDS: MIDODRINE HCL 2.5 MG TABLET PO SCH ×2 (09:23→17:25)
[2022-06-29] MEDS: ASCORBIC ACID 250 MG TABLET (FP) PO SCH ×2 (09:23→22:35)
[2022-06-29] MEDS: NYSTATIN POWDER 100,000 UNITS/GM - 15 GM TOPICAL POWDER TP SCH ×2 (09:25→22:35)
[2022-06-29 11:31] LABS: HEMATOCRIT 24.6 % (32.4-45.2); HEMOGLOBIN 8.6 GM/dL (10.7-15.3); MCH 35.5 pg (25.7-33.7); MCHC 34.8 g/dl (32.0-36.0); MEAN CELL VOLUME 101.8 fl (80-96); MEAN PLT VOLUME 7.7 fl (7.5-11.1); PLATELET COUNT 105 10^3/uL (134-434); RBC 2.42 M/mm3 (3.60-5.2); WHITE BLOOD COUNT 8.5 K/mm3 (4.0-10.0)
[2022-06-29 11:51] LABS: CHLORIDE 100 mmol/L (98-107); SODIUM 140 mmol/L (136-145)
[2022-06-29 11:53] LABS: CALCIUM 8.4 mg/dL (8.5-10.1); CO2 32 mmol/L (21-32); GLUCOSE,RANDOM 115 mg/dL (74-106)
[2022-06-29 11:54] LABS: BLOOD UREA NITROGEN 19.8 mg/dL (7-18)
[2022-06-29 11:57] LABS: CREATININE 0.8 mg/dL (0.55-1.3)
[2022-06-29 11:59] LABS: ANION GAP 8 MMOL/L (8-16)
[2022-06-29] MEDS: COLLAGENASE CLOSTRIDIUM HIST. 30 GRAMS TUBE TP SCH (12:27)
[2022-06-29] MEDS ORDERED: POTASSIUM CHLORIDE TABS 20 MEQ TABLET.ER (FP) PO ONE (14:00)
[2022-06-29] MEDS: KCL 10 MEQ IVPB 10 MEQ/100 ML INFUS.BAG IVPB SCH ×3 (14:23→18:00)
[2022-06-30] MEDS: PIPERACILLIN/TAZOB 3.375 GM 3.375 GM in DEXTROSE 5%-WATER - 50 ML IVPB SCH ×3 (01:37→17:12)
[2022-06-30] MEDS: LEVOTHYROXINE NA 100 MCG TABLET (FP) PO SCH (05:36)
[2022-06-30] MEDS: METOPROLOL TARTRATE 25 MG TABLET (FP) PO SCH ×2 (05:36→14:52)
[2022-06-30] MEDS: LACTULOSE 20 GM/30 ML UDC (FOR ORAL USE ONLY) PO SCH (10:23)
[2022-06-30] MEDS: ASCORBIC ACID 250 MG TABLET (FP) PO SCH (10:24)
[2022-06-30] MEDS: ZINC SULFATE 220 MG CAPSULE (FP) PO SCH (10:24)
[2022-06-30] MEDS: AMINO ACIDS/PROTEIN HYDROLYS 30 ML LIQUID.PKT PO SCH ×2 (10:24→17:12)
[2022-06-30] MEDS: SODIUM CHLORIDE 1 GM TABLET PO SCH (10:24)
[2022-06-30] MEDS: MULTIVITAMINS (DAILY MVI) TABLET (FP) PO SCH (10:25)
[2022-06-30] MEDS: FAMOTIDINE 20 MG TABLET PO SCH (10:25)
[2022-06-30] MEDS: MAGNESIUM OXIDE 400 MG TABLET (FP) PO SCH (10:25)
[2022-06-30] MEDS: PYRIDOXINE HCL (B-6) 50 MG TABLET (FP) PO SCH (10:25)
[2022-06-30] MEDS: MIDODRINE HCL 2.5 MG TABLET PO SCH ×2 (10:25→17:12)
[2022-06-30] MEDS: NYSTATIN POWDER 100,000 UNITS/GM - 15 GM TOPICAL POWDER TP SCH (10:26)
[2022-06-30] MEDS: COLLAGENASE CLOSTRIDIUM HIST. 30 GRAMS TUBE TP SCH (10:26)
[2022-06-30] MEDS ORDERED: POTASSIUM CHLORIDE TABS 20 MEQ TABLET.ER (FP) PO ONE ×2 (12:38→15:15)
[2022-06-30 17:12] VITALS: BP 90/40; PULSE 80; TEMP 98.1
== END 2022-06-30 17:40 | DRG 602 ==
LOC: JER 08:50 → JERBED 16:33 → J7W 22:46
PROVIDERS: ADMIT Family Medicine; ATTEND Family Medicine
PROC: 0Y9D30Z Drainage of Left Upper Leg with Drainage Device, Percutaneous Approach (ICD-10-PCS; principal; 2022-06-18)
PROC: BH48ZZZ Ultrasonography of Lower Extremity (ICD-10-PCS; 2022-06-18)
PROC: 30233K0 Transfusion of Autologous Frozen Plasma into Peripheral Vein, Percutaneous Approach (ICD-10-PCS; 2022-06-23)
PROC: 30233N0 Transfusion of Autologous Red Blood Cells into Peripheral Vein, Percutaneous Approach (ICD-10-PCS; 2022-06-24)
DX: L02.416 Cutaneous abscess of left lower limb (principal); L89.154 Pressure ulcer of sacral region, stage 4; T81.49XA Infection following a procedure, other surgical site, initial encounter; D68.9 Coagulation defect, unspecified; E87.1 Hypo-osmolality and hyponatremia; Y83.8 Other surgical procedures as the cause of abnormal reaction of the patient, or of later complication, without mention of misadventure at the time of the procedure; E03.9 Hypothyroidism, unspecified; I10 Essential (primary) hypertension; D64.9 Anemia, unspecified; D69.6 Thrombocytopenia, unspecified; I48.0 Paroxysmal atrial fibrillation; K70.31 Alcoholic cirrhosis of liver with ascites; E83.42 Hypomagnesemia; K90.0 Celiac disease; E87.6 Hypokalemia; E87.5 Hyperkalemia; B95.2 Enterococcus as the cause of diseases classified elsewhere; B96.1 Klebsiella pneumoniae [K. pneumoniae] as the cause of diseases classified elsewhere; K57.90 Diverticulosis of intestine, part unspecified, without perforation or abscess without bleeding; Z86.010 Personal history of colon polyps
CPT/HCPCS: 10030; 36415; 36430; 71045-TC-FY; 73701-TC-RT; 76700-TC; 80048; 80053; 80076; 81003; 82105; 82728; 82784; 83516; 83540; 83550; 83735; 83930; 83935; 84100; 84300; 84443; 85025; 85027; 85045; 85610; 85651; 85730; 86038; 86140; 86160; 86225; 86803; 86850; 86900; 86901; 86922; 87040; 87070; 87075; 87076; 87102; 87116; 87186; 87205; 87206; 87210; 87340; 87517; 97116-GP; 97161-GP; 99285-25; C9803-CS; J1644; P9017; P9058; Q9967; U0003; U0005

== ENCOUNTER 2022-11-10 20:05 | Inpatient (IN) | payer OTHER ==
[2022-11-10] MEDS ORDERED: SODIUM CHLORIDE 1,728 ML IV ONE (20:47)
[2022-11-10] MEDS ORDERED: TRANEXAMIC ACID 1000 MG/10 ML VIAL IVPUSH ONE (20:48)
[2022-11-10] MEDS ORDERED: TRANEXAMIC ACID 1000 MG/10 ML VIAL ONE (20:50)
[2022-11-10] MEDS ORDERED: ONDANSETRON 4 MG/2 ML VIAL IVPUSH ONE (21:31)
[2022-11-10] MEDS ORDERED: ONDANSETRON *ODT* 4 MG TABLET SL ONE (22:28)
[2022-11-10] MEDS ORDERED: SERTRALINE HCL 25 MG TABLET (FP) PO ONE (22:29)
[2022-11-10] MEDS ORDERED: LACTULOSE 20 GM/30 ML UDC (FOR ORAL USE ONLY) PO ONE (22:29)
[2022-11-10 22:40] LABS: BASO % 1.4 % (0-2.0); EOS % 3.6 % (0-4.5); HEMATOCRIT 28.9 % (32.4-45.2); HEMOGLOBIN 9.7 GM/dL (10.7-15.3); LYMPH % 37.3 % (8-40); MCH 35.7 pg (25.7-33.7); MCHC 33.6 g/dl (32.0-36.0); MEAN CELL VOLUME 106.2 fl (80-96); MEAN PLT VOLUME 8.4 fl (7.5-11.1); MONO % 11.6 % (3.8-10.2); NEUT % 46.1 % (42.8-82.8); PLATELET COUNT 66 10^3/uL (134-434); RBC 2.72 M/mm3 (3.60-5.2); RDW 14.5 % (11.6-15.6); WHITE BLOOD COUNT 3.9 K/mm3 (4.0-10.0)
[2022-11-10 22:58] LABS: CHLORIDE 100 mmol/L (98-107); INR 1.59 (0.83-1.09); PROTHROMBIN TIME (PATIENT) 18.4 SEC (9.7-13.0); SODIUM 136 mmol/L (136-145)
[2022-11-10 23:01] LABS: ACTIVATED PTT 39.4 SECONDS (25.2-36.5)
[2022-11-10 23:03] LABS: ALBUMIN 2.3 g/dl (3.4-5.0); ANION GAP 3 MMOL/L (8-16); BLOOD UREA NITROGEN 7.3 mg/dL (7-18); CO2 32 mmol/L (21-32); GLUCOSE,RANDOM 81 mg/dL (74-106)
[2022-11-10 23:06] LABS: CREATININE 0.6 mg/dL (0.55-1.3); SGOT/AST 58 U/L (15-37); SGPT/ALT 27 U/L (13-61)
[2022-11-10 23:08] LABS: ANISOCYTOSIS 1+; MACROCYTOSIS 2+; OVALOCYTE 1+; TARGET CELLS 1+; TOT PROT 5.8 g/dl (6.4-8.2)
[2022-11-10 23:09] LABS: ALK PHOS 107 U/L (45-117)
[2022-11-10] MEDS ORDERED: ONDANSETRON *ODT* 4 MG TABLET ONE (23:19)
[2022-11-10] MEDS ORDERED: SERTRALINE HCL 50 MG TABLET (FP) ONE (23:20)
[2022-11-11 00:49] LABS: VENOUS BASE EXCESS 6.9 mmol/L (-2-2); VENOUS O2 SATURATION 63.4 % (70-80); VENOUS PCO2 56.5 mmHg (38-52); VENOUS PH 7.388 (7.310-7.410)
[2022-11-11] MEDS ORDERED: LACTULOSE 20 GM/30 ML UDC (FOR ORAL USE ONLY) ONE (00:52)
[2022-11-11] MEDS ORDERED: RIFAXIMIN 550 MG TABLET PO ONE ×3 (04:16→22:36)
[2022-11-11] MEDS: LEVOTHYROXINE NA 150 MCG TABLET PO SCH (06:48)
[2022-11-11 07:20] LABS: BASO % 2.2 % (0-2.0); EOS % 4.1 % (0-4.5); HEMATOCRIT 28.6 % (32.4-45.2); HEMOGLOBIN 9.9 GM/dL (10.7-15.3); LYMPH % 37.9 % (8-40); MCH 36.6 pg (25.7-33.7); MCHC 34.7 g/dl (32.0-36.0); MEAN CELL VOLUME 105.4 fl (80-96); MEAN PLT VOLUME 8.2 fl (7.5-11.1); MONO % 11.4 % (3.8-10.2); NEUT % 44.4 % (42.8-82.8); PLATELET COUNT 62 10^3/uL (134-434); RBC 2.71 M/mm3 (3.60-5.2); RDW 14.2 % (11.6-15.6); WHITE BLOOD COUNT 3.4 K/mm3 (4.0-10.0)
[2022-11-11 07:54] LABS: BLOOD UREA NITROGEN 7.6 mg/dL (7-18)
[2022-11-11 07:55] LABS: ALBUMIN 2.2 g/dl (3.4-5.0)
[2022-11-11 07:58] LABS: CREATININE 0.6 mg/dL (0.55-1.3)
[2022-11-11 07:59] LABS: BILIRUBIN,TOTAL 3.2 mg/dL (0.2-1); TOT PROT 5.7 g/dl (6.4-8.2)
[2022-11-11] MEDS: MULTIVITAMINS (DAILY MVI) TABLET (FP) PO SCH (09:48)
[2022-11-11] MEDS: PANTOPRAZOLE 40 MG TABLET PO SCH (09:48)
[2022-11-11] MEDS: METOPROLOL TARTRATE 25 MG TABLET (FP) PO SCH ×2 (13:06→22:18)
[2022-11-11] MEDS ORDERED: LACTULOSE 20 GM/30 ML UDC (FOR ORAL USE ONLY) PO SCH (14:00)
[2022-11-11] MEDS: LACTULOSE 20 GM/30 ML UDC (FOR ORAL USE ONLY) PO SCH ×3 (14:06→22:35)
[2022-11-11 18:39] LABS: EPI CELLS >36 /uL (0-25.1); HYALINE CASTS 161 /uL (0-3.1); URINE APPEARANCE CLOUDY; URINE BILIRUBIN NEGATIVE (NEGATIVE); URINE COLOR DK YELLOW; URINE GLUCOSE (UA) NEGATIVE (NEGATIVE); URINE KETONE TRACE (NEGATIVE); URINE LEUK ESTERASE 2+ (NEGATIVE); URINE NITRITE NEGATIVE (NEGATIVE); URINE PROTEIN TRACE (NEGATIVE); URINE RBC 191 /uL (0-23.9); URINE WBC 49 /uL (0-25.8)
[2022-11-11 19:35] LABS: URINE BACTERIA Many /uL (0-1359)
[2022-11-11] MEDS: RIFAXIMIN 550 MG TABLET PO SCH (22:18)
[2022-11-12] MEDS: METOPROLOL TARTRATE 25 MG TABLET (FP) PO SCH ×3 (06:12→21:33)
[2022-11-12] MEDS: LEVOTHYROXINE NA 150 MCG TABLET PO SCH (06:13)
[2022-11-12 08:16] LABS: ALBUMIN 2.1 g/dl (3.4-5.0); BLOOD UREA NITROGEN 5.6 mg/dL (7-18)
[2022-11-12 08:18] LABS: CREATININE 0.6 mg/dL (0.55-1.3)
[2022-11-12 08:20] LABS: BILIRUBIN,TOTAL 3.1 mg/dL (0.2-1); TOT PROT 5.4 g/dl (6.4-8.2)
[2022-11-12 08:22] LABS: BASO % 2.5 % (0-2.0); EOS % 3.6 % (0-4.5); HEMATOCRIT 25.9 % (32.4-45.2); HEMOGLOBIN 8.9 GM/dL (10.7-15.3); LYMPH % 29.5 % (8-40); MCHC 34.3 g/dl (32.0-36.0); MEAN CELL VOLUME 104.8 fl (80-96); MEAN PLT VOLUME 8.5 fl (7.5-11.1); MONO % 12.1 % (3.8-10.2); NEUT % 52.3 % (42.8-82.8); PLATELET COUNT 67 10^3/uL (134-434); RBC 2.48 M/mm3 (3.60-5.2); RDW 14.5 % (11.6-15.6); WHITE BLOOD COUNT 4.7 K/mm3 (4.0-10.0)
[2022-11-12] MEDS: RIFAXIMIN 550 MG TABLET PO SCH ×2 (09:29→21:33)
[2022-11-12] MEDS: PANTOPRAZOLE 40 MG TABLET PO SCH (09:29)
[2022-11-12] MEDS: LACTULOSE 20 GM/30 ML UDC (FOR ORAL USE ONLY) PO SCH ×4 (09:29→21:34)
[2022-11-12] MEDS: MULTIVITAMINS (DAILY MVI) TABLET (FP) PO SCH (09:30)
[2022-11-12 16:51] VITALS: BMI 19.7
[2022-11-13] MEDS: METOPROLOL TARTRATE 25 MG TABLET (FP) PO SCH ×3 (06:06→22:01)
[2022-11-13] MEDS: LEVOTHYROXINE NA 150 MCG TABLET PO SCH (06:07)
[2022-11-13] MEDS: RIFAXIMIN 550 MG TABLET PO SCH ×2 (09:40→22:01)
[2022-11-13] MEDS: LACTULOSE 20 GM/30 ML UDC (FOR ORAL USE ONLY) PO SCH ×4 (09:40→22:01)
[2022-11-13] MEDS: MULTIVITAMINS (DAILY MVI) TABLET (FP) PO SCH (09:41)
[2022-11-13] MEDS: ASCORBIC ACID 250 MG TABLET (FP) PO SCH (09:41)
[2022-11-13] MEDS: PANTOPRAZOLE 40 MG TABLET PO SCH (09:41)
[2022-11-14] MEDS: LEVOTHYROXINE NA 150 MCG TABLET PO SCH (06:28)
[2022-11-14] MEDS: METOPROLOL TARTRATE 25 MG TABLET (FP) PO SCH ×3 (06:28→21:27)
[2022-11-14] MEDS: RIFAXIMIN 550 MG TABLET PO SCH ×2 (10:29→21:27)
[2022-11-14] MEDS: MULTIVITAMINS (DAILY MVI) TABLET (FP) PO SCH (10:29)
[2022-11-14] MEDS: ASCORBIC ACID 250 MG TABLET (FP) PO SCH (10:29)
[2022-11-14] MEDS: PANTOPRAZOLE 40 MG TABLET PO SCH (10:29)
[2022-11-14] MEDS: LACTULOSE 20 GM/30 ML UDC (FOR ORAL USE ONLY) PO SCH ×4 (10:30→21:27)
[2022-11-15] MEDS: METOPROLOL TARTRATE 25 MG TABLET (FP) PO SCH ×3 (06:36→21:14)
[2022-11-15] MEDS: LEVOTHYROXINE NA 150 MCG TABLET PO SCH (06:37)
[2022-11-15 08:12] LABS: BASO % 1.9 % (0-2.0); EOS % 3.9 % (0-4.5); HEMATOCRIT 25.4 % (32.4-45.2); HEMOGLOBIN 8.7 GM/dL (10.7-15.3); LYMPH % 32.1 % (8-40); MCHC 34.4 g/dl (32.0-36.0); MEAN CELL VOLUME 104.6 fl (80-96); MONO % 10.8 % (3.8-10.2); NEUT % 51.3 % (42.8-82.8); RBC 2.42 M/mm3 (3.60-5.2); RDW 13.8 % (11.6-15.6); WHITE BLOOD COUNT 5.3 K/mm3 (4.0-10.0)
[2022-11-15 08:16] LABS: MEAN PLT VOLUME 9.4 fl (7.5-11.1); PLATELET COUNT 61 10^3/uL (134-434)
[2022-11-15 09:29] LABS: CALCIUM 8.9 mg/dL (8.5-10.1)
[2022-11-15 09:30] LABS: BLOOD UREA NITROGEN 10.8 mg/dL (7-18)
[2022-11-15 09:32] LABS: CREATININE 0.6 mg/dL (0.55-1.3)
[2022-11-15 09:34] LABS: BILIRUBIN,TOTAL 3.2 mg/dL (0.2-1); TOT PROT 5.4 g/dl (6.4-8.2)
[2022-11-15] MEDS: LACTULOSE 20 GM/30 ML UDC (FOR ORAL USE ONLY) PO SCH ×4 (10:07→21:14)
[2022-11-15] MEDS: ASCORBIC ACID 250 MG TABLET (FP) PO SCH (10:07)
[2022-11-15] MEDS: RIFAXIMIN 550 MG TABLET PO SCH ×2 (10:07→21:14)
[2022-11-15] MEDS: PANTOPRAZOLE 40 MG TABLET PO SCH (10:07)
[2022-11-15] MEDS: MULTIVITAMINS (DAILY MVI) TABLET (FP) PO SCH (10:07)
[2022-11-16] MEDS: METOPROLOL TARTRATE 25 MG TABLET (FP) PO SCH ×3 (06:29→22:28)
[2022-11-16] MEDS: LEVOTHYROXINE NA 150 MCG TABLET PO SCH (06:29)
[2022-11-16] MEDS: LACTULOSE 20 GM/30 ML UDC (FOR ORAL USE ONLY) PO SCH ×4 (10:56→22:28)
[2022-11-16] MEDS: ASCORBIC ACID 250 MG TABLET (FP) PO SCH (10:57)
[2022-11-16] MEDS: PANTOPRAZOLE 40 MG TABLET PO SCH (10:57)
[2022-11-16] MEDS: RIFAXIMIN 550 MG TABLET PO SCH ×2 (10:57→22:31)
[2022-11-16] MEDS: MULTIVITAMINS (DAILY MVI) TABLET (FP) PO SCH (10:58)
[2022-11-16] MEDS: SODIUM CHLORIDE 1 GM TABLET PO SCH ×2 (11:29→22:30)
[2022-11-16] MEDS: MIDODRINE HCL 2.5 MG TABLET PO SCH ×2 (11:29→17:41)
[2022-11-17] MEDS: METOPROLOL TARTRATE 25 MG TABLET (FP) PO SCH (06:29)
[2022-11-17] MEDS: LEVOTHYROXINE NA 150 MCG TABLET PO SCH (06:29)
[2022-11-17 07:52] LABS: CALCIUM 8.5 mg/dL (8.5-10.1)
[2022-11-17 07:53] LABS: BLOOD UREA NITROGEN 14.3 mg/dL (7-18)
[2022-11-17 07:56] LABS: CREATININE 0.6 mg/dL (0.55-1.3)
[2022-11-17] MEDS ORDERED: AMINO ACIDS/PROTEIN HYDROLYS 30 ML LIQUID.PKT PO SCH (08:00)
[2022-11-17] MEDS: LACTULOSE 20 GM/30 ML UDC (FOR ORAL USE ONLY) PO SCH (09:23)
[2022-11-17] MEDS: MULTIVITAMINS (DAILY MVI) TABLET (FP) PO SCH (09:23)
[2022-11-17] MEDS: ASCORBIC ACID 250 MG TABLET (FP) PO SCH (09:23)
[2022-11-17] MEDS: SODIUM CHLORIDE 1 GM TABLET PO SCH (09:23)
[2022-11-17] MEDS: MIDODRINE HCL 2.5 MG TABLET PO SCH (09:23)
[2022-11-17] MEDS: RIFAXIMIN 550 MG TABLET PO SCH (09:23)
[2022-11-17] MEDS: PANTOPRAZOLE 40 MG TABLET PO SCH (09:23)
[2022-11-17] MEDS ORDERED: ZINC SULFATE 220 MG CAPSULE (FP) PO SCH (10:00)
[2022-11-17 11:39] VITALS: BP 107/60; PULSE 74; RESP 16; TEMP 98.1
== END 2022-11-17 13:42 | disposition home health service (06) | DRG 441 ==
LOC: JER 20:05 → JERBED 11-11 00:04 → J4W 11-11 04:55 → J4S 11-15 18:55
PROVIDERS: ADMIT Family Medicine; ATTEND Family Medicine
DX: K76.82 Hepatic encephalopathy (principal); L89.154 Pressure ulcer of sacral region, stage 4; N39.0 Urinary tract infection, site not specified; K76.6 Portal hypertension; I10 Essential (primary) hypertension; E78.5 Hyperlipidemia, unspecified; E03.9 Hypothyroidism, unspecified; I48.0 Paroxysmal atrial fibrillation; F10.10 Alcohol abuse, uncomplicated; D64.9 Anemia, unspecified; K70.30 Alcoholic cirrhosis of liver without ascites; B96.1 Klebsiella pneumoniae [K. pneumoniae] as the cause of diseases classified elsewhere; B96.20 Unspecified Escherichia coli [E. coli] as the cause of diseases classified elsewhere; K59.09 Other constipation
CPT/HCPCS: 0241U-QW; 36415; 70450-TC; 71045-TC-FY; 74178-TC; 80048; 80053; 80307; 81003; 82140; 82550; 82553; 82607; 82728; 82746; 82803; 83540; 83550; 83605; 84443; 84484; 85025; 85610; 85730; 86850; 86900; 86901; 87040; 87086; 87186; 93005; 93010; 97116-GP; 97162-GP; 99285-25; Q0162